=== PATIENT | female | born 1930 | race Caucasian/White ===

== ENCOUNTER 2018-07-04 15:02 | Observation (INO) ==
[2018-07-04 16:32] LABS: Basophils % 0.4 %; Eosinophils # 0.1 K/mcL (0.0-0.6); Eosinophils % 0.9 %; Hemoglobin 13.2 g/dL (11.5-15.4); Immature Granulocytes % 0.1 % (0-4); Lymphocytes # 2.8 K/mcL (0.6-4.6); Mean Corpuscular HGB Conc 33.8 g/dL (31.6-35.5); Mean Corpuscular Hemoglobin 30.8 pg (28.0-33.3); Mean Corpuscular Volume 90.9 fL (83.0-100.0); Mean Platelet Volume 11.9 fL (9.4-12.4); Monocytes # 0.6 K/mcL (0.0-1.3); Neutrophils # 4.5 K/mcL (1.6-8.9); Platelet Count 158 K/mcL (140-400); Red Blood Count 4.29 M/mcL (3.82-4.97); Red Cell Distribution Width 13.5 % (11.5-14.5); Segmented Neutrophils % 56.6 %
[2018-07-04] MEDS ORDERED: Aspirin 325 MG TABLET PO ONE (16:44)
[2018-07-04 16:46] LABS: INR 0.9; Prothrombin Time 10.1 Seconds (9.4-12.1)
[2018-07-04 16:47] LABS: Activated Partial Thrombo Time 29.4 Seconds (26.0-36.0)
[2018-07-04 16:48] LABS: BUN/Creatinine Ratio 32 (6-26); Blood Urea Nitrogen 29 mg/dL (8-23); Carbon Dioxide 28 mEq/L (23-29); Chloride 104 mEq/L (98-107); Glucose 98 mg/dL (70-105); Osmolality,Calculated 294 (280-300); Potassium 3.8 mEq/L (3.5-5.1); Sodium 139 mEq/L (136-145); eGFR For Non-African Americans 57 (> 60)
[2018-07-04 16:49] LABS: Troponin I < 0.03 ng/mL (< 0.04)
[2018-07-04 17:07] LABS: Alanine Aminotransferase 12 Units/L (7-52); Albumin 4.2 g/dL (3.5-5.7); Albumin/Globulin Ratio 1.4 (1.1-2.2); Alkaline Phosphatase 46 Units/L (34-104); Aspartate Amino Transferase 19 Units/L (13-39); Bilirubin,Direct 0.1 mg/dL (0.0-0.2); Bilirubin,Indirect 0.5 mg/dL (0.0-1.2); Bilirubin,Total 0.6 mg/dL (0.3-1.0); Lipase 45 Units/L (11-82); Total Protein 7.2 g/dL (6.4-8.9)
[2018-07-04] MEDS ORDERED: cloNIDine HCl 0.1 MG TABLET PO ONE (17:10)
--- NOTE | 2018-07-04 17:18 | Emergency Department Note ---
Disposition Clinical Impression: Elevated blood pressure reading Chest pain Qualifiers: Chest pain type: unspecified Qualified Code(s): R07.9 - Chest pain, unspecified Disposition: Admitted As Inpatient Condition: Fair Referrals: Torsten May DO [Primary Care Provider] - Forms: ED Satisfaction Letter Time of Disposition: 17:22 General Adult HPI - General Chief complaint: ED Chest Pain Stated complaint: Chest pain Time Seen by Provider: 07/04/18 16:27 Source: patient Mode of arrival: ambulatory Limitations: no limitations Nursing Notes Reviewed: Yes Vital Signs Reviewed: Yes - History of Present Illness HPI Narrative: Patient is an 88-year-old female with a past medical history of difficulty hearing, hypertension, high cholesterol and diabetes presents to the emergency room for evaluation of chest pain. Patient's family is also at bedside. According to patient's family they were taking her to an appointment for hearing aids and she had sudden onset of right sided lower chest pain at the bottom of her ribs that she describes as a sharp stabbing pain was sudden onset that cause her to become dyspneic and nauseated. Patient's family brought her in for evaluation upon arrival to the ED her symptoms had resolved. According to the patient she has had pain similar to this in the past however this is the worst it is ever been. She denies any cardiac history or recent workup. She states that she does take hypertension medications and she has clonidine when necessary for when her systolic blood pressures greater than 180. Pain Scale: 8 - Related Data Home Medications Medication Instructions Recorded Confirmed Lisinopril [Zestril] 5 mg PO BID 07/04/18 07/04/18 Allergies Allergy/AdvReac Type Severity Reaction Status Date / Time No Known Allergies Allergy Verified 07/04/18 15:11 All systems ED: reviewed and negative except as stated. Review of Systems: As Per HPI Constitutional: Denies: fever, chills Cardiovascular: Reports: chest pain. Denies: palpitations Respiratory: Reports: dyspnea. Denies: cough, wheezes Gastrointestinal: Reports: nausea. Denies: abdominal pain, vomiting Musculoskeletal: Denies: back pain, neck pain Integumentary: Denies: rash Neurological: Denies: headache, weakness, numbness, paresthesias Past Medical History - Past Medical History Attestation: Yes The following information was validated with the patient. Medical history: Reports: hyperlipidemia, hypertension, TIA Psychiatric history: Reports: no psych history - Social History Smoking Status: Never smoker Smokeless Tobacco Status: No Alcohol use: Reports: rarely Drug use: Reports: none Physical Exam - General Limitations: no limitations General appearance: alert - Head Head exam: atraumatic, normocephalic, normal inspection - Eye Eye exam: Present: normal appearance, PERRL, EOMI - ENT ENT exam: normal exam, normal oropharynx, mucous membranes moist - Neck Neck exam: Present: normal inspection, full ROM, trachea midline - Chest Chest inspection: Present: normal inspection, symmetric chest wall rise - Respiratory Respiratory exam: Present: normal lung sounds bilaterally, respiratory distress. Absent: wheezes - Cardiovascular Cardiovascular exam: Present: regular rate, normal rhythm, normal heart sounds, +S1, +S2 - Abdominal Exam Abdominal exam: Present: soft, Non-Tender, normal bowel sounds. Absent: tenderness - Extremities Exam Extremities exam: Present: normal inspection, full ROM, normal capillary refill. Absent: tenderness - Psychiatric Psychiatric exam: Present: normal affect, normal mood - Skin Skin exam: Present: warm, dry, intact, normal color Course Course Narrative: Patient presents for evaluation of right-sided chest pain just at the inferior portion of the ribs on the right side anteriorly. Her symptoms are currently resolved. Vital signs are within normal limits except her blood pressure is currently 210 systolic. The patient does admit to taking when necessary clonidine for elevated blood pressure. She will receive a full dose of aspirin. She will undergo workup for rule out cardiac ideology also in addition order a hepatic panel given that she has had pain close to her right upper quadrant sounds like it could be biliary colic in nature. - Reevaluation(s) Reevaluation #1: Patient's repeat blood pressure with a systolic in the 190s. She will be given her home dose of clonidine. Patient's lab work was unremarkable and her EKG was nonischemic. Her HEART score was moderate. Given that she has had no recent workup plan is times to bring her in for further evaluation of her chest pain. Patient agrees with this plan. Time: 17:21 Vital Signs Temperature 97.6 F 07/04/18 15:06 Pulse Rate 79 07/04/18 15:06 Respiratory Rate 22 07/04/18 15:06 Blood Pressure 233/95 07/04/18 15:06 O2 Sat by Pulse Oximetry 97 07/04/18 15:06 Temperature 97.6 F 07/04/18 15:06 Pulse Rate 65 07/04/18 17:00 Respiratory Rate 15 07/04/18 17:00 Blood Pressure 197/68 07/04/18 17:00 O2 Sat by Pulse Oximetry 100 07/04/18 17:00 Oxygen Delivery Oxygen Delivery Room Air Medical Decision Making - Medical Records Medical records reviewed: Yes I reviewed the patient's medical records. - Lab Data Lab results reviewed: Yes I reviewed the patient's lab results. Result diagrams: 07/04/18 16:14 07/04/18 16:14 Lab Results 07/04/18 07/04/18 07/04/18 Range/Units 16:14 16:14 16:14 WBC 8.0 (4.3-11.1) K/mcL RBC 4.29 (3.82-4.97) M/mcL Hgb 13.2 (11.5-15.4) g/dL Hct 39.0 (35.3-44.9) % MCV 90.9 (83.0-100.0) fL MCH 30.8 (28.0-33.3) pg MCHC 33.8 (31.6-35.5) g/dL RDW 13.5 (11.5-14.5) % Plt Count 158 (140-400) K/mcL MPV 11.9 (9.4-12.4) fL Immature Gran % 0.1 (0-4) % Seg Neutrophils % 56.6 % Lymphocytes % 35.0 % Monocytes % 7.0 % Eosinophils % 0.9 % Basophils % 0.4 % Neutrophils # 4.5 (1.6-8.9) K/mcL Lymphocytes # 2.8 (0.6-4.6) K/mcL Monocytes # 0.6 (0.0-1.3) K/mcL Eosinophils # 0.1 (0.0-0.6) K/mcL Basophils # 0.0 (0.0-0.2) K/mcL PT 10.1 (9.4-12.1) Seconds INR 0.9 APTT 29.4 (26.0-36.0) Seconds Sodium (136-145) mEq/L Potassium (3.5-5.1) mEq/L Chloride (98-107) mEq/L Carbon Dioxide (23-29) mEq/L BUN (8-23) mg/dL Creatinine (0.60-1.20) mg/dL Est GFR ( Amer) (> 60) Est GFR (Non-Af Amer) (> 60) BUN/Creatinine Ratio (6-26) Glucose (70-105) mg/dL Calculated Osmolality (280-300) Calcium (8.6-10.3) mg/dL Total Bilirubin (0.3-1.0) mg/dL Direct Bilirubin (0.0-0.2) mg/dL Indirect Bilirubin (0.0-1.2) mg/dL AST (13-39) Units/L ALT (7-52) Units/L Alkaline Phosphatase (34-104) Units/L Troponin I (< 0.04) ng/mL B-Natriuretic Peptide 90 (Less than 100) pg/mL Serum Total Protein (6.4-8.9) g/dL Albumin (3.5-5.7) g/dL Globulin (2.4-3.5) g/dL Albumin/Globulin Ratio (1.1-2.2) Lipase (11-82) Units/L 07/04/18 Range/Units 16:14 WBC (4.3-11.1) K/mcL RBC (3.82-4.97) M/mcL Hgb (11.5-15.4) g/dL Hct (35.3-44.9) % MCV (83.0-100.0) fL MCH (28.0-33.3) pg MCHC (31.6-35.5) g/dL RDW (11.5-14.5) % Plt Count (140-400) K/mcL MPV (9.4-12.4) fL Immature Gran % (0-4) % Seg Neutrophils % % Lymphocytes % % Monocytes % % Eosinophils % % Basophils % % Neutrophils # (1.6-8.9) K/mcL Lymphocytes # (0.6-4.6) K/mcL Monocytes # (0.0-1.3) K/mcL Eosinophils # (0.0-0.6) K/mcL Basophils # (0.0-0.2) K/mcL PT (9.4-12.1) Seconds INR APTT (26.0-36.0) Seconds Sodium 139 (136-145) mEq/L Potassium 3.8 (3.5-5.1) mEq/L Chloride 104 (98-107) mEq/L Carbon Dioxide 28 (23-29) mEq/L BUN 29 H (8-23) mg/dL Creatinine 0.92 (0.60-1.20) mg/dL Est GFR ( Amer) > 60 (> 60) Est GFR (Non-Af Amer) 57 L (> 60) BUN/Creatinine Ratio 32 H (6-26) Glucose 98 (70-105) mg/dL Calculated Osmolality 294 (280-300) Calcium 10.0 (8.6-10.3) mg/dL Total Bilirubin 0.6 (0.3-1.0) mg/dL Direct Bilirubin 0.1 (0.0-0.2) mg/dL Indirect Bilirubin 0.5 (0.0-1.2) mg/dL AST 19 (13-39) Units/L ALT 12 (7-52) Units/L Alkaline Phosphatase 46 (34-104) Units/L Troponin I < 0.03 (< 0.04) ng/mL B-Natriuretic Peptide (Less than 100) pg/mL Serum Total Protein 7.2 (6.4-8.9) g/dL Albumin 4.2 (3.5-5.7) g/dL Globulin 3.0 (2.4-3.5) g/dL Albumin/Globulin Ratio 1.4 (1.1-2.2) Lipase 45 (11-82) Units/L - Radiology Data Radiology results reviewed: Yes I reviewed the patient's radiology results. Chest X-Ray 07/04/18 15:11 IMPRESSION: Cardiomegaly. No acute pulmonary process. D/ / Yarely Quintanilla MD / Yarely Quintanilla MD Interpreting Provider: Yarely Quintanilla MD - EKG Data EKG #1 EKG results narrative: EKG done at 15:13 shows sinus rhythm at a rate of 68 bpm. Normal axis. Intervals within normal limits. No signs of ST elevation, depression or other signs of ischemia. Attestation Statement - Attestation Attestation: I examined this patient and my medical decision-making was reviewed with the Resident Physician, Dr Adams. I agree with the documented findings, disposition and treatment plan as described except to the extent set forth below. Patient is an 88-year-old white female with a history of diabetes hypertension hyperlipidemia as well as hard of hearing who presents to emergency permit today brought by family when the patient began experiencing substernal and epigastric pain while in a vehicle with her family being taken for replacement of her hearing aids today. His occurred approximately one hour prior to arrival to the ED. Once arrives to the ED patient's symptoms resolved and she is resting c omplaint this time chest pain-free. Family reports that she looked extremely uncomfortable became diaphoretic, nauseated and short of breath. Patient has no prior cardiac history or testing in the past. Patient is hypertensive on arrival they state that she is on lisinopril for blood pressure at home and is directed to take a dose of clonidine if it has systolic blood pressure greater than 180. I agree with patient's physical exam findings as documented. Elevated blood pressure otherwise vitals are stable she is resting comfortably in no acute distress. Patient's EKG was normal sinus rhythm and did not show any acute ischemia. Patient underwent lab evaluation, received aspirin and chest x-ray was obtained. We did add hepatic panel and lipase. At this time troponin is negative we are awaiting LFTs and lipase this time. Patient will be given a dose of clonidine for her persistently elevated blood pressure. Plan is to admit the patient for further evaluation for chest pain. Patient's LFTs and lipase are within normal limits. Patient remains chest pain- free at this time and resting comfortably. Patient will be admitted for further evaluation of chest pain. Case will be discussed with hospitalist service.
[2018-07-04] MEDS ORDERED: Naloxone 0.4 MG/ML INJ IVP PRN (18:13)
--- NOTE | 2018-07-04 18:17 | Internal Med History&Physical ---
Date of Encounter: 07/04/18 Time of Encounter: 18:16 Internal Medicine - H&P: HPI Chief complaint: chest pain Admitted From: Home Plans for Post Hospital Care: Home History of present illness: Ms. Royal is a 88 year old female with past medical history of hyperlipidemia, hypertension, TIA came in with complain of chest pain. Patient was going along with the [id number] in car where he states he started having chest pain while resting. Pain lasted for about 40 minutes. It was associated with the dyspnea, diaphoresis as well as tingling in her hands. Pain was severe intensity about 10/10 epigastric in region and then radiated to her right side of the rib cage. Patient had similar pain in the past but not of this intensity. Previous pain no significant aggravating and alleviating factors. Occasional with exertion. Denies any previous cardiac history or cardiac workup. Patient has diagnoses of hypertension and hyperlipidemia however tries to minimize her medication. Currently not taking any cholesterol medication. She takes clonidine when her blood pressure is more than 180 and half a tablet of lisinopril twice a day for blood pressure. Patient was evaluated in ER at which time she was pain-free. EKG without any ischemic signs. First troponin negative. Lab with normal LFTs, BNP and lipase. Minimally elevated BUNs. Patient received aspirin 325 in ER as well as clonidine for blood pressure as her blood pressure was systolic 200. During the time of interview patient chest pain-free. Denies any complaints. Blood pressure now 160s systolic. Denies any shortness of breath, abdominal pain back pain bowel or urinary complaints. Breathing normally on room air. Past Med Surg Social Fam HX - Past Medical History Medical history: hyperlipidemia, hypertension, TIA Psychiatric history: no psych history - Social History Smoking Status: Never smoker Smokeless Tobacco Status: No Alcohol use: rarely Drug use: none - Additional Family History Additional family history: Son without significant medical history. Internal Medicine - H&P: Meds Lisinopril [Zestril] 5 mg PO BID 07/04/18 [History] Allergy/AdvReac Type Severity Reaction Status Date / Time No Known Allergies Allergy Verified 07/04/18 15:11 All Systems PM: A 10-system review of systems was performed and is negative for pertinent findings except as documented above in the HPI. - Constitutional Vitals: Temp Pulse Resp BP Pulse Ox 97.6 F 60 14 190/73 99 07/04/18 15:06 07/04/18 17:30 07/04/18 17:30 07/04/18 17:30 07/04/18 17:30 Exam: Constitutional: Vitals as noted. Conversant. No Apparent Distress. Thinly built Eyes : Sclera white, conjunctiva clear, no lid lag, PEARLA. ENT : Difficult to hearing. Oropharyngeal exam unremarkable. Moist mucus membranes. No JVD, no cervical lymphadenopathy. no thyromegaly or mass. Respiratory : Clear to auscultation bilaterally. No accessory muscle use, rales, rhonchi or wheezes Cardiovascular : RRR, +S1, +S2. no murmur, gallop, rubs. No chest wall tenderness GI/Abdominal : Soft, Non-tender, Non-distended, normal bowel sounds, soft, no peritoneal signs. no orgenomegaly or mass appreciated. no hernia. Musculoskeletal: no deformity noted. no edema or cyanosis. warm extremities, pulses palpable and symmetrical in UE/LE. no calf tenderness. Neurological: AO X3, CN II-XII grossly intact, grossly normal motor and sensory exam. Skin: No skin rash, lesions or ulcers noted. Pych: Good insight and judgement. AOx3. Internal Med - H&P Results - Labs CBC & Chem 7: 07/04/18 16:14 07/04/18 16:14 Labs: Short CBC 07/04/18 Range/Units 16:14 WBC 8.0 (4.3-11.1) K/mcL Hgb 13.2 (11.5-15.4) g/dL Hct 39.0 (35.3-44.9) % Plt Count 158 (140-400) K/mcL Neutrophils # 4.5 (1.6-8.9) K/mcL BMP 07/04/18 16:14 Sodium 139 Potassium 3.8 Chloride 104 Carbon Dioxide 28 BUN 29 H Creatinine 0.92 Glucose 98 Calcium 10.0 Cardiac Enzymes 07/04/18 Range/Units 16:14 Troponin I < 0.03 (< 0.04) ng/mL Liver Function 07/04/18 Range/Units 16:14 Total Bilirubin 0.6 (0.3-1.0) mg/dL Direct Bilirubin 0.1 (0.0-0.2) mg/dL AST 19 (13-39) Units/L ALT 12 (7-52) Units/L Alkaline Phosphatase 46 (34-104) Units/L Albumin 4.2 (3.5-5.7) g/dL - EKG Data -: EKG Interpreted by Myself EKG shows normal: axis (normal) Rate: normal - Impressions ITS Impressions Chest X-Ray 07/04/18 15:11 IMPRESSION: Cardiomegaly. No acute pulmonary process. D/ / Yarely Quintanilla MD / Yarely Quintanilla MD Interpreting Provider: Yarely Quintanilla MD - Assessment and plan (1) Chest pain Current Visit: Yes Status: Acute Assessment and plan: - Admitted under observation - First troponin negative. EKG without ischemic changes. Currently chest pain- free - Patient with moderate heart score - trend troponin 3. - If negative will plan for nuclear stress test in the morning - Keep nothing by mouth after midnight - Also obtain echocardiogram - Obtain lipid panel in the morning. We will discuss starting statin in the morning. Qualifiers: Chest pain type: unspecified Qualified Code(s): R07.9 - Chest pain, unspecified (2) HTN (hypertension) Current Visit: Yes Status: Acute Assessment and plan: - Initial blood pressure with systolic 200 - Received clonidine in ER - We will start patient on amlodipine and lisinopril - When necessary labetalol for SBP more than 180 Qualifiers: Hypertension type: essential hypertension Qualified Code(s): I10 - Essential (primary) hypertension (3) HLD (hyperlipidemia) Current Visit: Yes Status: Acute Assessment and plan: - Follow-up lipid panel in the morning Qualifiers: Qualified Code(s): E78.5 - Hyperlipidemia, unspecified - Time Spent With Patient Total time spent is greater than 50% in coordination of care (as documented) at patient's floor/unit and/or counseling patient: - VTE Reasons for not Prescribing Prophylaxis: Treatment not Indicated - Low risk for VTE
[2018-07-04] MEDS ORDERED: *HR* Labetalol 20 MG/4 ML SYRINGE IVP PRN (18:19)
[2018-07-04] MEDS: amLODIPine 5 MG TABLET PO SCH (19:01)
[2018-07-04] MEDS ORDERED: Perflutren Lipid Microsphere 1.3 ML in 0.9 % Sodium Chloride 8.7 ML IVP ONE (21:31)
[2018-07-05 05:03] LABS: BUN/Creatinine Ratio 31 (6-26); Blood Urea Nitrogen 25 mg/dL (8-23); Calcium 9.4 mg/dL (8.6-10.3); Carbon Dioxide 26 mEq/L (23-29); Chloride 107 mEq/L (98-107); Chol/HDL Ratio 3.9 (0-4.9); Glucose 93 mg/dL (70-105); Osmolality,Calculated 292 (280-300); Potassium 3.8 mEq/L (3.5-5.1); Sodium 139 mEq/L (136-145); eGFR For Non-African Americans > 60 (> 60)
[2018-07-05 05:04] LABS: Troponin I < 0.03 ng/mL (< 0.04)
[2018-07-05 05:17] LABS: Thyroid Stimulating Hormone 2.321 mcIU/mL (0.340-5.600)
[2018-07-05 08:13] VITALS: BP 130/66
[2018-07-05] MEDS ORDERED: Aspirin Enteric Coated 81 MG Tablet PO SCH (09:00)
[2018-07-05] MEDS: amLODIPine 5 MG TABLET PO SCH (09:47)
--- NOTE | 2018-07-05 11:11 | Discharge Summary ---
- NOTES TO OUTPATIENT PROVIDER Notes to Outpatient Provider: Needs follow up with cardiology. Orders not resulted at time of discharge: Pending orders 07/04/18 16:28 ECG 12 lead ECG [ECG] Stat Date of Encounter: 07/06/18 Time of Encounter: 11:07 - Discharge Diagnosis (1) Chest pain Priority: Primary Status: Acute Qualifiers: Chest pain type: unspecified Qualified Code(s): R07.9 - Chest pain, unspecified (2) HTN (hypertension) Priority: Secondary Status: Acute Qualifiers: Hypertension type: essential hypertension Qualified Code(s): I10 - Essential (primary) hypertension (3) HLD (hyperlipidemia) Priority: Secondary Status: Acute Qualifiers: Qualified Code(s): E78.5 - Hyperlipidemia, unspecified (4) Hypertensive urgency Priority: Primary Status: Acute Hospital course: Ms. Royal is a 88 year old female with history of hyperlipidemia and hypertension came in with chest pain. EKG without ischemic changes. Troponin negative 3. Initially she had her blood pressure in 200s systolic. Echo showed mild diastolic dysfunction and normal EF. Patient refused stress test due to feeling claustrophobic and not willing to undergo the testing given the symptoms to testing with produce. Patient understood the risk and was discharged today. Patient was started on amlodipine and continued to have home lisinopril. Her LDL cholesterol was elevated and was started on pravastatin to minimize symptom of myopathy. Discharge discussed with: patient, family, nurse, social work (45) - Time Spent with Patient Total time spent providing and/or coordinating discharge services: Greater than 30 minutes - Discharge Medications Prescriptions: RX: amLODIPine [Norvasc] 5 mg PO DAILY 30 Days #30 tablet RX: Aspirin Enteric Coated [Aspirin EC] 81 mg PO DAILY 30 Days #30 tablet. RX: Lisinopril [Zestril] 5 mg PO DAILY 30 Days #30 tablet RX: Pravastatin Sodium [Pravachol] 20 mg PO DAILY 30 Days #30 tablet Home Medications: RX: Aspirin Enteric Coated [Aspirin EC] 81 mg PO DAILY 30 Days #30 tablet. 07/05/18 [Rx] RX: Lisinopril [Zestril] 5 mg PO DAILY 30 Days #30 tablet 07/05/18 [Rx] RX: Pravastatin Sodium [Pravachol] 20 mg PO DAILY 30 Days #30 tablet 07/05/18 [Rx] RX: amLODIPine [Norvasc] 5 mg PO DAILY 30 Days #30 tablet 07/05/18 [Rx] Allergies/Adverse Reactions: Allergy/AdvReac Type Severity Reaction Status Date / Time No Known Allergies Allergy Verified 07/04/18 15:11 Date of admission: 07/04/18 17:41 Primary care physician: Torsten May Discharging clinician: Jose Quintanilla - Constitutional Vitals: Temp Pulse Resp BP Pulse Ox 97.6 F 51 16 130/66 98 07/05/18 08:12 07/05/18 08:12 07/05/18 08:12 07/05/18 08:12 07/05/18 08:12 General appearance: Present: no acute distress Exam: Constitutional: Vitals as noted. Conversant. No Apparent Distress. Thinly built ENT : Difficult to hearing. Oropharyngeal exam unremarkable. Moist mucus membranes. No JVD, no cervical lymphadenopathy. no thyromegaly or mass. Respiratory : Clear to auscultation bilaterally. No accessory muscle use, rales, rhonchi or wheezes Cardiovascular : RRR, +S1, +S2. no murmur, gallop, rubs. No chest wall tenderness GI/Abdominal : Soft, Non-tender, Non-distended, normal bowel sounds, soft, no peritoneal signs. no orgenomegaly or mass appreciated. no hernia. Musculoskeletal: no deformity noted. no edema or cyanosis. warm extremities, pulses palpable and symmetrical in UE/LE. no calf tenderness. Neurological: AO X3, CN II-XII grossly intact, grossly normal motor and sensory exam. Skin: No skin rash, lesions or ulcers noted. - Patient Status Disposition: Home, Self-Care - Discharge Instructions Instructions: Chest Pain (DC) Follow Up With: Torsten May DO [Primary Care Provider] - 07/09/18 1:30 pm - Diet and Activity Activity: resume usual activities as tolerated - VTE Reasons for not Prescribing Prophylaxis: Treatment not Indicated - Low risk for VTE
--- NOTE | 2018-07-08 06:37 | Electrocardiograph Report ---
[facility] Test Date: 2018-07-04 Pat Name: Penny oRyal Department: 104 Room: 3B52 Gender: F Associate Art Director: FELIPE : [id number] Requested By: Juan Stewart Order Number: [id number] Reading MD: Jas Langley Measurements Intervals [place] Rate: 68 P: 69 AL: 190 QRS: -3 QRSD: 78 T: 20 QT: 364 QTc: 381 Interpretive Statements SINUS RHYTHM Electronically Signed On 07-08-2018 6:35:52 EST by Jas Langley
== END 2018-07-05 12:33 | disposition home or self-care (01) ==
LOC: EMEROOARM 15:02 → 3BNU 15:02 → SUATTDRO 17:41 → 3BNU 18:09
PROVIDERS: ADMIT Internal Medicine; ATTEND Internal Medicine